=== PATIENT | male | born 1980 | race Caucasian/White ===

== ENCOUNTER 2021-02-20 03:09 | Emergency (ER) | payer OTHER ==
[~2021-02-20] VITALS: Ht 177.8 cm; Wt 93.0 kg
[~2021-02-20 03:09] MED LIST: NORCO 5-325 TA1 EACH PO; ZPAK PO
[2021-02-20 03:20] VITALS: BP 140/90
== END 2021-02-20 03:50 | disposition home or self-care (01) ==
LOC: M.ERS 03:09
DX: M54.9 Dorsalgia, unspecified (principal); Z53.21 Procedure and treatment not carried out due to patient leaving prior to being seen by health care provider